=== PATIENT | female | born 1990 | race Two or more races ===

== ENCOUNTER 2025-03-12 11:15 | Emergency (ER) | payer OTHER ==
[~2025-03-12] VITALS: Ht 165.1 cm; Wt 74.8 kg
[2025-03-12] MEDS ORDERED: 0.9 % SODIUM CHLORIDE 1,000 ML IV STA (13:48)
[2025-03-12 14:37] LABS: BASO % 0.9 % (0.1-1.2); EOS # 0.14 (0.04-0.54); HEMATOCRIT 45.1 % (34.1-44.9); HEMOGLOBIN 15.6 g/dL (11.2-15.7); LYMPH # 1.82 (1.18-3.74); LYMPH % 39.4 % (19.3-53.1); MONO # 0.44 (0.24-0.82); MONO % 9.5 % (4.7-12.5); NEUT # 2.17 (1.56-6.13); PLATELET COUNT 234 K/uL (163-369); RED BLOOD COUNT 5.57 M/uL (3.93-5.22); RED CELL DISTRIBUTION WIDTH 12.9 % (11.6-14.4)
[2025-03-12 14:58] LABS: CALCIUM 9.6 mg/dL (8.5-10.1); CREATININE SERUM 1.04 mg/dL (0.55-1.02); GFR 61.03; POTASSIUM 3.77 mEq/L (3.5-5.1)
[2025-03-12 17:35] LABS: PH,URINE 5.5 (5.0-8.0); URINE APPEARANCE Clear; URINE BILIRRUBIN Negative (NEGATIVE); URINE BLOOD Negative; URINE COLOR Yellow; URINE GLUCOSE Negative (NEGATIVE); URINE KETONE Trace (NEGATIVE); URINE LEUKOCYTE Negative; URINE NITRATE Negative; URINE PROTEIN Negative (NEGATIVE); URINE UROBILINOGEN 0.2 E.U./dl
[2025-03-12 17:40] LABS: URINE EPITHELIAL CELLS 18.9 uL (0.0-38.8); URINE RBC 12.8 uL (0.0-20.8); URINE WBC 22.3 uL (0.0-23.2)
[2025-03-12 17:49] LABS: URINE CAST 0.14 uL (0.0-1.40)
== END 2025-03-12 19:20 | disposition home or self-care (01) ==
LOC: ER 11:15
PROVIDERS: Emergency Medicine
DX: K52.89 Other specified noninfective gastroenteritis and colitis (principal)